=== PATIENT | female | born 1990 | race American Indian/Alaskan Native ===

== ENCOUNTER 2019-08-25 13:46 | Emergency (ER) | payer SELFPAY ==
[2019-08-25] MEDS ORDERED: SODIUM CHLORIDE 0.9% 1000 ML 1,000 ML IV ONE (18:31)
[2019-08-25] MEDS ORDERED: METOCLOPRAMIDE 10 MG/2 ML INJ IV ONE (18:31)
[2019-08-25 18:40] LABS: Hematocrit 38.6 % (30.3-42.9); Hemoglobin 12.5 gm/dl (10.1-14.3); Mean Corpuscular HGB Conc 32 % (30-34); Mean Corpuscular Volume 94 fl (79-97); Platelet Count 228 K/mm3 (140-440); Red Blood Count 4.11 M/mm3 (3.65-5.03); Red Cell Distribution Width 12.1 % (13.2-15.2)
[2019-08-25 18:42] LABS: Basophils % (Auto) 0.5 % (0.0-1.8); Eosinophils # (Auto) 0.1 K/mm3 (0.0-0.4); Eosinophils % (Auto) 1.9 % (0.0-4.3); Lymphocytes # (Auto) 1.6 K/mm3 (1.2-5.4); Monocytes # (Auto) 0.5 K/mm3 (0.0-0.8); Monocytes % (Auto) 6.7 % (0.0-7.3)
[2019-08-25 18:44] LABS: Alanine Aminotransferase 34 units/L (7-56); BUN/Creatinine Ratio 20; Blood Urea Nitrogen 10 mg/dL (7-17); Calcium 9.2 mg/dL (8.4-10.2)
[2019-08-25 18:45] LABS: Hemolysis Index 100
--- NOTE | 2019-08-25 18:49 | Emergency Department Report ---
ED N/V/D HPI - General Chief complaint: Pain General Stated complaint: 4WKS PREG CRAMPING, VOMITING Time Seen by Provider: 08/25/19 17:55 Source: patient Mode of arrival: Ambulatory Limitations: No Limitations - History of Present Illness Initial comments: This is a 28-year-old female nontoxic, well nourished in appearance, no acute signs of distress presents to the ED with c/o of nausea and vomiting several weeks. Stated has some body aches. Patient describes vomiting as food content. Stated has some pelvic pain. Patient denies any abdominal pain, flank pain, chest pain, short of breath, fever, chills, headache, stiff neck, numbness or tingling. Denies any vaginal bleeding. Stated is about 4-5 weeks . LMP . Patient denies any diarrhea or constipation. Denies any blood in stool. Patient denies any recent travels. Patient denies any drug allergies significant past medical history. MD complaint: nausea, vomiting -: week(s) Description of Vomiting: food contents Associated Abdominal Pain: No Radiation: none Pain Scale: 0 Consistency: constant Improves with: none Worsens with: none Associated Symptoms: nausea/vomiting. denies: myalgias, chest pain, cough, diaphoresis, fever/chills, headaches, loss of appetite, malaise, rash, dysuria, shortness of breath, syncope, weakness - Related Data Allergies Allergy/AdvReac Type Severity Reaction Status Date / Time No Known Allergies Allergy Unverified 08/25/19 13:52 ED Review of Systems ROS: Stated complaint: 4WKS PREG CRAMPING, VOMITING Other details as noted in HPI Constitutional: denies: chills, fever Eyes: denies: eye pain, eye discharge, vision change ENT: denies: ear pain, throat pain Respiratory: denies: cough, shortness of breath, wheezing Cardiovascular: denies: chest pain, palpitations Endocrine: no symptoms reported Gastrointestinal: nausea, vomiting. denies: abdominal pain, diarrhea Genitourinary: denies: urgency, dysuria, discharge Musculoskeletal: denies: back pain, joint swelling, arthralgia Skin: denies: rash, lesions Neurological: denies: headache, weakness, paresthesias Psychiatric: denies: anxiety, depression Hematological/Lymphatic: denies: easy bleeding, easy bruising ED Past Medical Hx - Past Medical History Previous Medical History?: Yes - Surgical History Past Surgical History?: Yes Additional Surgical History: x 2 - Social History Smoking Status: Never Smoker Substance Use Type: None ED Physical Exam - General Limitations: No Limitations General appearance: alert, in no apparent distress - Head Head exam: Present: atraumatic, normocephalic - Eye Eye exam: Present: normal appearance - Neck Neck exam: Present: normal inspection, full ROM. Absent: tenderness, meningismus, lymphadenopathy - Respiratory Respiratory exam: Present: normal lung sounds bilaterally. Absent: respiratory distress, wheezes, rales, rhonchi, stridor, chest wall tenderness, accessory muscle use, decreased breath sounds, prolonged expiratory - Cardiovascular Cardiovascular Exam: Present: regular rate, normal rhythm, normal heart sounds. Absent: bradycardia, tachycardia, irregular rhythm, systolic murmur, diastolic murmur, rubs, gallop - GI/Abdominal GI/Abdominal exam: Present: soft, normal bowel sounds. Absent: distended, tenderness, guarding, rebound, rigid, diminished bowel sounds - Extremities Exam Extremities exam: Present: normal inspection, full ROM - Back Exam Back exam: Present: normal inspection, full ROM. Absent: tenderness, CVA tenderness (R), CVA tenderness (L), muscle spasm, paraspinal tenderness, vertebral tenderness, rash noted - Neurological Exam Neurological exam: Present: alert, oriented X3, normal gait - Psychiatric Psychiatric exam: Present: normal affect, normal mood - Skin Skin exam: Present: warm, dry, intact, normal color. Absent: rash ED Course Vital Signs 08/25/19 13:54 Temperature 97.8 F Pulse Rate 83 Respiratory 18 Rate Blood Pressure 110/71 O2 Sat by Pulse 99 Oximetry - Reevaluation(s) Reevaluation #1: 08/25/19 18:48 Patient is speaking in full sentences with no signs of distress noted. ED Medical Decision Making - Lab Data Result diagrams: 08/25/19 18:05 08/25/19 18:05 Lab Results 08/25/19 08/25/19 08/25/19 Range/Units 18:05 18:05 18:05 WBC 7.5 (4.5-11.0) K/mm3 RBC 4.11 (3.65-5.03) M/mm3 Hgb 12.5 (10.1-14.3) gm/dl Hct 38.6 (30.3-42.9) % MCV 94 (79-97) fl MCH 31 (28-32) pg MCHC 32 (30-34) % RDW 12.1 L (13.2-15.2) % Plt Count 228 (140-440) K/mm3 Lymph % (Auto) 22.0 (13.4-35.0) % [place] % (Auto) 6.7 (0.0-7.3) % Eos % (Auto) 1.9 (0.0-4.3) % Baso % (Auto) 0.5 (0.0-1.8) % Lymph # 1.6 (1.2-5.4) K/mm3 [place] # 0.5 (0.0-0.8) K/mm3 Eos # 0.1 (0.0-0.4) K/mm3 Baso # 0.0 (0.0-0.1) K/mm3 Add Manual Diff Complete Seg Neutrophils % 68.9 (40.0-70.0) % Seg Neutrophils # 5.2 (1.8-7.7) K/mm3 Sodium 133 L (137-145) mmol/L Potassium 4.5 (3.6-5.0) mmol/L Chloride 99.9 (98-107) mmol/L Carbon Dioxide 19 L (22-30) mmol/L Anion Gap 19 mmol/L BUN 10 (7-17) mg/dL Creatinine 0.5 L (0.7-1.2) mg/dL Estimated GFR > 60 ml/min BUN/Creatinine Ratio 20 % Glucose 93 (65-100) mg/dL Calcium 9.2 (8.4-10.2) mg/dL Total Bilirubin 0.20 (0.1-1.2) mg/dL AST 26 (5-40) units/L ALT 34 (7-56) units/L Alkaline Phosphatase 62 (35-129) units/L Total Protein 7.5 (6.3-8.2) g/dL Albumin 4.0 (3.9-5) g/dL Albumin/Globulin Ratio 1.1 % HCG, Quant [id number] H (0-4) mIU/mL - Radiology Data Referring Physician: EMELINA VALVERDE Patient Name: RICK ZHOU Date of : 1990 Sex: Female Report Date: 2019-08-25 Report Status: Finalized [facility] [address] [id number] [facility] Report Signed Patient: RICK ZHOU MR#: [id number] : 1990 Acct:[id number] Age/Sex: 28 / F ADM Date: 08/25/19 Loc: ED Attending Dr: Ordering Physician: EMELINA VALVERDE NP Date of Service: 08/25/19 Procedure(s): US OB <= 14 weeks fetus Accession Number(s): [id number] cc: EMELINA VALVERDE NP TRANSABDOMINAL OB PELVIC ULTRASOUND INDICATION / CLINICAL INFORMATION: Pelvic pain. COMPARISON: None available. FINDINGS: There is a single intrauterine with an estimated gestational age of 9 weeks 2 days by crown-rump length. The EDC is 03/27/20. There is a pole with cardiac activity and a heart rate of 176 bpm. A yolk sac is present. There is no evidence of implantation hemorrhage. The right ovary measures 2.7 x 1.7 x 2.0 cm and contains a 1.3 cm corpus luteal cyst. The left ovary measures 2.7 x 1.9 x 2.2 cm. There is normal blood flow to both ovaries on Doppler exam. There is no evidence of extraovarian mass or free fluid. IMPRESSION: Single viable 9 week 2 day intrauterine without complication. Signer Name: Raj Campbell MD Signed: 08/25/2019 8:55 PM Workstation Name: [id number] Transcribed By: RT Dictated By: Raj Campbell MD Electronically Authenticated By: Raj Campbell MD Signed Date/Time: 08/25/192054 DD/ 51 TD/TT: - Medical Decision Making This is a 28-year-old female that presents with hyperemesis gravidarum and pelvic pain. Patient is stable and was examined by me. There is no abdominal tenderness. Negative signs of symptoms of appendicitis, cholecystitis or acute abdomen. Labs obtained. UA obtained. Vital signs are stable prior to discharge. Patient received Reglan and 1L Normal saline in the ED which patient stated symptoms has resolved and subsided. A by mouth challenge has been obtained and patient tolerated well with no nausea vomiting. Patient was also instructed to Follow-up with a primary care doctor in 3-5 days or if symptoms worsen and continue return to emergency room as soon as possible. At time of discharge, the patient does not seem toxic or ill in appearance. No acute signs of distress noted. Patient agrees to discharge treatment plan of care. No further questions noted by the patient. Critical care attestation.: If time is entered above; I have spent that time in minutes in the direct care of this critically ill patient, excluding procedure time. ED Disposition Clinical Impression: Hyperemesis gravidarum, Pelvic pain during Disposition: DC- TO HOME OR SELFCARE Is pt being admited?: No Does the pt Need Aspirin: No Condition: Stable Instructions: Hyperemesis Gravidarum (ED) Additional Instructions: Follow-up with a OBGYN doctor in 3-5 days or if symptoms worsen and continue return to emergency room as soon as possible. Referrals: [facility] [Primary Care Provider] - 3-5 Days [facility] [Provider Group] - 3-5 Days [facility] [Provider Group] - 3-5 Days Forms: Work/School Release Form(ED)
[2019-08-25] MEDS ORDERED: SODIUM CHLORIDE 0.9% 1000 ML 2,000 ML IV ONE (18:51)
[2019-08-25] MEDS ORDERED: METOCLOPRAMIDE 10 MG/2 ML INJ ONE (20:55)
--- NOTE | 2019-08-25 20:59 | Ultrasound Report ---
TRANSABDOMINAL OB PELVIC ULTRASOUND INDICATION / CLINICAL INFORMATION: Pelvic pain. COMPARISON: None available. FINDINGS: There is a single intrauterine with an estimated gestational age of 9 weeks 2 days by crown -rump length. The EDC is 03/27/20. There is a pole with cardiac activity and a heart rate of 17 6 bpm. A yolk sac is present. There is no evidence of implantation hemorrhage. The right ovary measures 2.7 x 1.7 x 2.0 cm and contains a 1.3 cm corpus luteal cyst. The left ovary measures 2.7 x 1.9 x 2.2 cm. There is normal blood flow to both ovaries on Doppler exam. There is no evidence of extraovarian mass or free fluid. IMPRESSION: Single viable 9 week 2 day intrauterine without complication. Signer Name: Raj Campbell MD Signed: 08/25/2019 8:55 PM Workstation Name: [id number]
[2019-08-26 02:04] VITALS: BP 105/50
== END 2019-08-25 23:30 | disposition home or self-care (01) ==
LOC: ED 13:46
DX: O21.0 Mild hyperemesis gravidarum (principal); O21.8 Other vomiting complicating pregnancy; O26.891 Other specified pregnancy related conditions, first trimester; R10.2 Pelvic and perineal pain; Z3A.09 9 weeks gestation of pregnancy; Z98.890 Other specified postprocedural states
CPT/HCPCS: 36415; 76801; 80053; 84702; 85025; 96361; 96374; 99284; J2765; J7030